=== PATIENT | male | born 1945 | race Caucasian/White ===

== ENCOUNTER 2022-09-28 13:26 | Inpatient (IN) | payer MEDICARE ==
[~2022-09-28] VITALS: Ht 177.8 cm; Wt 87.8 kg
[2022-09-28 13:35] VITALS: PULSE 125; RESP 27; O2SAT 95
[2022-09-28] MEDS ORDERED: HEPARIN SODIUM (PORCINE) 5000 UNITS/ML 1ML VIAL SC SCH (13:45)
[2022-09-28] MEDS ORDERED: SODIUM CHLORIDE 0.9% 2,250 ML IV ONE (13:45)
[2022-09-28] MEDS ORDERED: LACTATED RINGER'S 2,700 ML IV ONE (13:45)
[2022-09-28] MEDS ORDERED: VANCOMYCIN PER PHARMACY 1,000 MG IV SCH (13:45)
[2022-09-28] MEDS ORDERED: SODIUM CHLORIDE 0.9% 1,000 ML IV ONE (13:45)
[2022-09-28 14:58] LABS: Basophils # (auto) 0 10 ^3/uL (0-0.2); Basophils % (auto) 0.2 % (0.0-2.0); Eosinophils # (auto) 0 10 ^3/uL (0-0.8); Hemoglobin 7.9 g/dL (13.5-17.5); Lymphocytes # (auto) 0.8 10 ^3/uL (0.4-5.4); Neutrophils # (auto) 11.8 10 ^3/uL (1.6-8.6)
[2022-09-28 14:59] LABS: Hematocrit 26.7 % (41.0-53.0); Lymphocytes % (auto) 6.3 % (10.0-50.0); Mean Corpuscular Hemoglobin 16.8 pg (28.0-32.0); Mean Corpuscular Hgb Conc. 29.8 g/dL (32.0-36.0); Mean Corpuscular Volume 56.4 fL (80.0-100.0); Monocytes # (auto) 0.4 10 ^3/uL (0-1.3); Monocytes % (auto) 2.9 % (0.0-12.0); Neutrophils % (auto) 90.6 % (37.0-80.0); Red Blood Cells 4.73 10^6/uL (4.5-5.90); Red Cell Distribution Width 19.6 % (11.8-14.3)
[2022-09-28 15:13] LABS: Albumin 2.4 g/dL (3.4-5.0); Calcium 7.8 mg/dL (8.5-10.1); Potassium 3.2 mmol/L (3.5-5.1)
[2022-09-28 15:17] LABS: BUN/Creatinine Ratio 14.9 (10.0-20.0); Bilirubin, Total 0.4 mg/dL (0.2-1.0); Total Protein 6.5 g/dL (6.4-8.2)
[2022-09-28] MEDS ORDERED: SOD CHL 0.45% WITH 20MEQ KCL 1,000 ML IV ONE (15:30)
[2022-09-28] MEDS ORDERED: ACETAMINOPHEN 650 MG RECT SUPP PR ONE (15:30)
[2022-09-28] MEDS ORDERED: PIPERACILLIN-TAZO 4.5GM 100 ML IV ONE (15:30)
[2022-09-28 15:32] LABS: INR 1.16 (0.9-1.15); Partial Thromboplastin Time 29.4 SEC (24.5-34.5); Prothrombin Time 12.1 sec (9.3-11.8)
[2022-09-28] MEDS ORDERED: NOREPINEPHRINE 8 MG/250ML KIT 250 ML IV ONE (15:33)
[2022-09-28] MEDS: NOREPINEPHRINE 8 MG/250ML KIT 250 ML IV SCH (15:42)
[2022-09-28] MEDS ORDERED: LIDOCAINE 1% (LOCAL ANESTH.) PF 5ml SDV ID ONE (16:15)
[2022-09-28 16:30] LABS: Hypochromia Moderate; Platelet Estimate Adequate; Stomatocytes Few
[2022-09-28 16:31] LABS: Ovalocytes FEW; Target Cell FEW
[2022-09-28] MEDS ORDERED: VANCOMYCIN PER PHARMACY 0 MG IV SCH (16:45)
[2022-09-28] MEDS ORDERED: DOCUSATE SOD 100 MG CAP PO PRN (16:45)
[2022-09-28] MEDS ORDERED: DEXTROSE (50%) 50ML SYRG IV PRN (16:45)
[2022-09-28] MEDS ORDERED: VANCOMYCIN 1GM/250ML 250 ML IV ONE (17:00)
[2022-09-28] MEDS: SODIUM CHLORIDE 0.9% 1,000 ML IV SCH (17:22)
[2022-09-28 17:43] LABS: Urine Blood 1+ /uL (Negative); Urine Clarity CLOUDY (Clear); Urine Protein, UAD 2+ (Negative); Urine Specific Gravity 1.017 (1.001-1.035); Urine Urobilinogen Normal (Negative); Urine pH 7.5 (5.0-8.0)
[2022-09-28 17:53] LABS: Alcohol, Urine < 3.0 mg/dL (0-10); Amphetamine Screen, Urine NEGATIVE (NEGATIVE); Barbiturate Scree,Urine NEGATIVE (NEGATIVE); Benzodiazephine Screen, Urine NEGATIVE (NEGATIVE); Cannabinoid Screen, Urine NEGATIVE (NEGATIVE); Cocaine Screen, Urine NEGATIVE (NEGATIVE); Opiate Scree,Urine NEGATIVE (NEGATIVE); Phencyclidine Screen, Urine NEGATIVE (NEGATIVE); Urine Amorphous Crystal Moderate /hpf (None Seen); Urine Bacteria MANY /hpf (None Seen); Urine Hyaline Cast 1+ /lpf (0 - 2)
[2022-09-28 17:54] LABS: Urine Color YELLOW (Yellow)
[2022-09-28] MEDS ORDERED: PIPERACILLIN-TAZOB 3.375GM 100 ML IV SCH (18:00)
[2022-09-28] MEDS: ACCU-CHEK COMFORT CURVE STRIP VI SCH (18:01)
[2022-09-28] MEDS: POTASSIUM CHL 20MEQ/100ML 100 ML IV SCH ×2 (18:04→20:28)
[2022-09-28] MEDS: InsuLIN REG 1unit/0.01ml Soln (100units/ml) SC SCH (18:06)
[2022-09-28 18:54] LABS: Base Excess -4.9 mmol/L (-2.0-2.0)
[2022-09-28 19:02] LABS: COVID19 ANTIGEN SOFIA FIA NEGATIVE (NEGATIVE)
[2022-09-28 19:20] LABS: Blood Alcohol < 3.0 mg/dL (<10); Phosphorus 3.1 mg/dL (2.5-4.90)
[2022-09-28 19:30] VITALS: PULSE 83; RESP 22; O2SAT 95
[2022-09-28] MEDS: PIPERACILLIN-TAZOB 3.375GM 100 ML IV SCH (20:36)
[2022-09-28] MEDS ORDERED: PIPERACILLIN-TAZO 4.5GM 100 ML IV SCH (22:00)
[2022-09-28] MEDS: ENOXAPARIN SOD 80 MG/0.8ML SYRINGE SC SCH (22:24)
[2022-09-28] MEDS: SODIUM CHLOR 0.9% PF (SALINE LOCK) 10ML VIAL/SYR IV SCH (22:24)
[2022-09-28 23:05] LABS: Lactic Acid w/Reflex 2.6 mmol/L (0.4-2.0)
[2022-09-29] MEDS: ACCU-CHEK COMFORT CURVE STRIP VI SCH ×4 (00:09→18:18)
[2022-09-29] MEDS: InsuLIN REG 1unit/0.01ml Soln (100units/ml) SC SCH ×4 (00:16→18:00)
[2022-09-29] MEDS: SODIUM CHLORIDE 0.9% 1,000 ML IV SCH ×3 (00:35→17:54)
[2022-09-29] MEDS: PIPERACILLIN-TAZOB 3.375GM 100 ML IV SCH ×4 (03:22→20:18)
[2022-09-29 06:05] LABS: Basophils # (auto) 0 10 ^3/uL (0-0.2); Basophils % (auto) 0.2 % (0.0-2.0); Eosinophils # (auto) 0 10 ^3/uL (0-0.8); Hematocrit 24.5 % (41.0-53.0); Hemoglobin 7.1 g/dL (13.5-17.5); Mean Corpuscular Volume 58.2 fL (80.0-100.0); Red Blood Cells 4.21 10^6/uL (4.5-5.90)
[2022-09-29 06:08] LABS: Eosinophils % (auto) 0.1 % (0.0-7.0); Lymphocytes % (auto) 10.1 % (10.0-50.0); Mean Corpuscular Hemoglobin 16.9 pg (28.0-32.0); Mean Corpuscular Hgb Conc. 29.1 g/dL (32.0-36.0); Monocytes % (auto) 9.7 % (0.0-12.0); Neutrophils # (auto) 16.1 10 ^3/uL (1.6-8.6); Neutrophils % (auto) 79.9 % (37.0-80.0); White Blood Cell 20.1 10^3/uL (4.4-10.8)
[2022-09-29 06:14] LABS: Calcium 7.3 mg/dL (8.5-10.1); Potassium 3.3 mmol/L (3.5-5.1)
[2022-09-29 06:18] LABS: BUN/Creatinine Ratio 18.2 (10.0-20.0); Bilirubin, Total 0.4 mg/dL (0.2-1.0); Total Protein 6.1 g/dL (6.4-8.2)
[2022-09-29] MEDS: MAGNESIUM SULFATE 1GM/100ML 100 ML IV SCH ×2 (07:00→08:00)
[2022-09-29] MEDS: POTASSIUM CHL 20MEQ/100ML 100 ML IV SCH ×2 (07:00→10:01)
[2022-09-29 07:15] VITALS: PULSE 70; RESP 22; O2SAT 100
[2022-09-29 08:13] LABS: Cholesterol 73 mg/dL (< 200); HDL Cholesterol 25 mg/dL (40-59); LDL Cholesterol 32 mg/dL (< 100); Triglycerides 132 mg/dL (< 150)
[2022-09-29] MEDS ORDERED: ENOXAPARIN SOD 40 MG/0.4 ML SYRINGE SC SCH (10:00)
[2022-09-29] MEDS: SODIUM CHLOR 0.9% PF (SALINE LOCK) 10ML VIAL/SYR IV SCH ×2 (10:01→22:25)
[2022-09-29] MEDS: ENOXAPARIN SOD 80 MG/0.8ML SYRINGE SC SCH ×2 (10:03→22:19)
[2022-09-29] MEDS: VANCOMYCIN 1GM/250ML 250 ML IV SCH (11:28)
[2022-09-29 11:29] LABS: Hypochromia Moderate; Ovalocytes FEW; Platelet Estimate Adequate; Tear Drop Cells FEW
[2022-09-29] MEDS: ASPirin 81 mg TAB PO SCH (11:30)
[2022-09-29] MEDS ORDERED: MORPHINE SULFATE INJ 2 MG/ml SYRG IV ONE (12:00)
[2022-09-29] MEDS: NOREPINEPHRINE 8 MG/250ML KIT 250 ML IV SCH (15:43)
[2022-09-29] MEDS ORDERED: BACLOFEN 10 MG TAB PO SCH (15:50)
[2022-09-29] MEDS: BACLOFEN 10 MG TAB PO SCH ×2 (16:11→22:19)
[2022-09-29] MEDS: MORPHINE SULFATE INJ 2 MG/ml SYRG IV PRN ×2 (17:32→23:34)
[2022-09-29 19:35] VITALS: PULSE 80; RESP 10; O2SAT 100
[2022-09-29] MEDS: ATORVASTATIN 20 MG TAB PO SCH (22:19)
[2022-09-29] MEDS: ONDANSETRON HCL 4 MG/2 ML VIAL IV PRN (23:34)
[2022-09-30] VITALS (10 sets, daily range): BP systolic 98–156; BP diastolic 33–69; PULSE 68–84; RESP 11–18; TEMP 97.5–98.4; O2SAT 97–99
[2022-09-30] MEDS: VANCOMYCIN 1GM/250ML 250 ML IV SCH ×2 (01:24→19:33)
[2022-09-30] MEDS: ACCU-CHEK COMFORT CURVE STRIP VI SCH ×4 (01:35→18:09)
[2022-09-30] MEDS: InsuLIN REG 1unit/0.01ml Soln (100units/ml) SC SCH ×4 (01:35→18:00)
[2022-09-30] MEDS: SODIUM CHLORIDE 0.9% 1,000 ML IV SCH ×3 (02:22→23:00)
[2022-09-30] MEDS: PIPERACILLIN-TAZOB 3.375GM 100 ML IV SCH ×4 (02:26→20:50)
[2022-09-30] MEDS: BACLOFEN 10 MG TAB PO SCH ×4 (04:38→22:37)
[2022-09-30] MEDS: MORPHINE SULFATE INJ 2 MG/ml SYRG IV PRN ×3 (06:13→19:34)
[2022-09-30] MEDS: ONDANSETRON HCL 4 MG/2 ML VIAL IV PRN ×2 (06:13→19:33)
[2022-09-30 08:24] LABS: Basophils # (auto) 0 10 ^3/uL (0-0.2); Basophils % (auto) 0.3 % (0.0-2.0); Eosinophils # (auto) 0.1 10 ^3/uL (0-0.8); Lymphocytes # (auto) 1.3 10 ^3/uL (0.4-5.4); Mean Corpuscular Volume 59.6 fL (80.0-100.0); Monocytes # (auto) 1.1 10 ^3/uL (0-1.3); Neutrophils # (auto) 11.4 10 ^3/uL (1.6-8.6); Neutrophils % (auto) 81.5 % (37.0-80.0)
[2022-09-30 08:26] LABS: Eosinophils % (auto) 0.9 % (0.0-7.0); Hematocrit 24.5 % (41.0-53.0); Lymphocytes % (auto) 9.3 % (10.0-50.0); Mean Corpuscular Hgb Conc. 28.6 g/dL (32.0-36.0); Nucleated Red Blood Cells % 0.1 %
[2022-09-30 08:41] LABS: Albumin 1.9 g/dL (3.4-5.0); Calcium 6.9 mg/dL (8.5-10.1); Potassium 3.1 mmol/L (3.5-5.1)
[2022-09-30 08:44] LABS: BUN/Creatinine Ratio 13.9 (10.0-20.0); Bilirubin, Total 0.5 mg/dL (0.2-1.0); Total Protein 5.8 g/dL (6.4-8.2)
[2022-09-30 08:57] LABS: Red Cell Distribution Width 20.4 % (11.8-14.3)
[2022-09-30] MEDS: SODIUM CHLOR 0.9% PF (SALINE LOCK) 10ML VIAL/SYR IV SCH ×2 (10:07→22:38)
[2022-09-30] MEDS: ENOXAPARIN SOD 80 MG/0.8ML SYRINGE SC SCH ×2 (10:21→22:37)
[2022-09-30] MEDS: ASPirin 81 mg TAB PO SCH (10:21)
[2022-09-30 11:09] LABS: Platelet Estimate Adequate
[2022-09-30 11:10] LABS: Hypochromia Moderate
[2022-09-30 11:13] LABS: Sickle Cells FEW
[2022-09-30 11:21] LABS: Tear Drop Cells FEW
[2022-09-30] MEDS: NOREPINEPHRINE 8 MG/250ML KIT 250 ML IV SCH (16:00)
[2022-09-30] MEDS: ATORVASTATIN 20 MG TAB PO SCH (22:37)
[2022-10-01] VITALS (96 sets, daily range): BP systolic 61–170; BP diastolic 22–77; PULSE 58–100; RESP 9–27; TEMP 98.1–99.6; O2SAT 84–100
[2022-10-01] MEDS: PIPERACILLIN-TAZOB 3.375GM 100 ML IV SCH ×2 (02:17→10:34)
[2022-10-01] MEDS: SODIUM CHLORIDE 0.9% 1,000 ML IV SCH ×4 (02:57→23:52)
[2022-10-01] MEDS: BACLOFEN 10 MG TAB PO SCH ×4 (04:24→21:35)
[2022-10-01] MEDS: ACCU-CHEK COMFORT CURVE STRIP VI SCH ×2 (06:00)
[2022-10-01] MEDS: InsuLIN REG 1unit/0.01ml Soln (100units/ml) SC SCH ×2 (06:00)
[2022-10-01 07:49] LABS: Basophils # (auto) 0 10 ^3/uL (0-0.2); Basophils % (auto) 0.4 % (0.0-2.0); Eosinophils # (auto) 0.2 10 ^3/uL (0-0.8); Eosinophils % (auto) 1.7 % (0.0-7.0); Hematocrit 30.1 % (41.0-53.0); Hemoglobin 8.6 g/dL (13.5-17.5); Lymphocytes # (auto) 0.8 10 ^3/uL (0.4-5.4); Lymphocytes % (auto) 8.4 % (10.0-50.0); Mean Corpuscular Hemoglobin 18.7 pg (28.0-32.0); Mean Corpuscular Hgb Conc. 28.4 g/dL (32.0-36.0); Mean Corpuscular Volume 65.6 fL (80.0-100.0); Monocytes # (auto) 0.7 10 ^3/uL (0-1.3); Monocytes % (auto) 7.3 % (0.0-12.0); Neutrophils # (auto) 7.9 10 ^3/uL (1.6-8.6); Neutrophils % (auto) 82.2 % (37.0-80.0); Red Blood Cells 4.59 10^6/uL (4.5-5.90); White Blood Cell 9.6 10^3/uL (4.4-10.8)
[2022-10-01 09:44] LABS: Platelet Estimate Adequate
[2022-10-01 09:45] LABS: Hypochromia Moderate; Tear Drop Cells FEW
[2022-10-01 09:48] LABS: Ovalocytes FEW
[2022-10-01] MEDS: ASPirin 81 mg TAB PO SCH (10:36)
[2022-10-01] MEDS: SODIUM CHLOR 0.9% PF (SALINE LOCK) 10ML VIAL/SYR IV SCH ×2 (10:36→21:35)
[2022-10-01] MEDS: ENOXAPARIN SOD 80 MG/0.8ML SYRINGE SC SCH (10:37)
[2022-10-01] MEDS: MORPHINE SULFATE INJ 2 MG/ml SYRG IV PRN ×2 (10:59→17:41)
[2022-10-01] MEDS ORDERED: CLOP75TA70 PO (12:47)
[2022-10-01] MEDS ORDERED: LEVO100T8 PO (12:47)
[2022-10-01] MEDS ORDERED: HYDR25TA4 PO (12:47)
[2022-10-01] MEDS ORDERED: BACL10TA PO (12:47)
[2022-10-01] MEDS ORDERED: ATOR40TA52 PO (12:47)
[2022-10-01] MEDS: VANCOMYCIN 1GM/250ML 250 ML IV SCH (13:20)
[2022-10-01] MEDS: NOREPINEPHRINE 8 MG/250ML KIT 250 ML IV SCH ×2 (13:38→23:51)
[2022-10-01 13:41] LABS: Albumin 1.7 g/dL (3.4-5.0); Calcium 6.8 mg/dL (8.5-10.1)
[2022-10-01 13:46] LABS: BUN/Creatinine Ratio 8.4 (10.0-20.0); Bilirubin, Total 0.3 mg/dL (0.2-1.0); Total Protein 5.5 g/dL (6.4-8.2)
[2022-10-01 13:54] LABS: Potassium 2.9 mmol/L (3.5-5.1)
[2022-10-01] MEDS ORDERED: POTASSIUM CHL 20 Meq TABLET PO ONE ×2 (14:30→17:00)
[2022-10-01] MEDS: DAKINS QUARTER STR 0.125% (NaHypochlorite) 473 ML TOPICAL SOL TOP SCH (15:14)
[2022-10-01] MEDS: MAGNESIUM SULFATE 1GM/100ML 100 ML IV SCH ×2 (15:15→17:41)
[2022-10-01] MEDS: HYDROcodone-ACET 5/325MG TAB PO PRN ×2 (15:25→21:35)
[2022-10-01] MEDS: MEROPENEM 1GM IVPB 100 ML IV SCH ×2 (18:01→21:34)
[2022-10-01] MEDS: Ensure HIGH Protein Chocolate 8oz Bottle PO SCH (18:02)
[2022-10-01] MEDS: ATORVASTATIN 20 MG TAB PO SCH (21:34)
[2022-10-02] VITALS (100 sets, daily range): BP systolic 81–160; BP diastolic 30–85; PULSE 58–151; RESP 10–31; TEMP 98.1–98.9; O2SAT 87–100
[2022-10-02] MEDS: MORPHINE SULFATE INJ 2 MG/ml SYRG IV PRN (03:23)
[2022-10-02] MEDS: BACLOFEN 10 MG TAB PO SCH ×4 (03:31→21:39)
[2022-10-02 05:04] LABS: Basophils # (auto) 0.1 10 ^3/uL (0-0.2); Basophils % (auto) 0.4 % (0.0-2.0); Eosinophils # (auto) 0.1 10 ^3/uL (0-0.8); Eosinophils % (auto) 0.4 % (0.0-7.0); Hematocrit 26.8 % (41.0-53.0); Lymphocytes # (auto) 0.9 10 ^3/uL (0.4-5.4); Mean Corpuscular Hemoglobin 18.7 pg (28.0-32.0); Mean Corpuscular Hgb Conc. 29.9 g/dL (32.0-36.0); Mean Corpuscular Volume 62.6 fL (80.0-100.0); Monocytes # (auto) 1.4 10 ^3/uL (0-1.3); Monocytes % (auto) 11.2 % (0.0-12.0); Neutrophils # (auto) 10.1 10 ^3/uL (1.6-8.6); Nucleated Red Blood Cells % 0.4 %; Red Blood Cells 4.27 10^6/uL (4.5-5.90); White Blood Cell 12.5 10^3/uL (4.4-10.8)
[2022-10-02 05:07] LABS: RPR Non Reactive (Non Reactive)
[2022-10-02 05:08] LABS: Red Cell Distribution Width 24.3 % (11.8-14.3)
[2022-10-02 05:23] LABS: Calcium 7.5 mg/dL (8.5-10.1); Potassium 3.6 mmol/L (3.5-5.1)
[2022-10-02 05:30] LABS: Albumin 1.7 g/dL (3.4-5.0); BUN/Creatinine Ratio 7.6 (10.0-20.0)
[2022-10-02 05:34] LABS: Bilirubin, Total 0.3 mg/dL (0.2-1.0); Total Protein 5.7 g/dL (6.4-8.2)
[2022-10-02] MEDS: MEROPENEM 1GM IVPB 100 ML IV SCH ×3 (05:36→21:39)
[2022-10-02] MEDS: LEVOTHYROXINE SODIUM 100 MCG TAB PO SCH (06:30)
[2022-10-02] MEDS: VANCOMYCIN 1GM/250ML 250 ML IV SCH (06:30)
[2022-10-02] MEDS: ASPirin 81 mg TAB PO SCH (09:02)
[2022-10-02] MEDS: SODIUM CHLOR 0.9% PF (SALINE LOCK) 10ML VIAL/SYR IV SCH ×2 (09:02→21:40)
[2022-10-02] MEDS: ENOXAPARIN SOD 40 MG/0.4 ML SYRINGE SC SCH (09:02)
[2022-10-02] MEDS: Ensure HIGH Protein Chocolate 8oz Bottle PO SCH ×3 (09:03→18:54)
[2022-10-02 10:13] LABS: Hypochromia Moderate; Platelet Estimate Adequate
[2022-10-02 10:15] LABS: Target Cell FEW; Tear Drop Cells FEW
[2022-10-02] MEDS: NOREPINEPHRINE 8 MG/250ML KIT 250 ML IV SCH (11:06)
[2022-10-02] MEDS: HYDROcodone-ACET 5/325MG TAB PO PRN (12:23)
[2022-10-02] MEDS ORDERED: ALBUMIN 25% 50 ML IV ONE (12:45)
[2022-10-02] MEDS: DAKINS QUARTER STR 0.125% (NaHypochlorite) 473 ML TOPICAL SOL TOP SCH (13:44)
[2022-10-02] MEDS ORDERED: PHENYLEPHRINE IV 250 ML IV ONE (18:57)
[2022-10-02] MEDS ORDERED: POTASSIUM CHL 20 Meq TABLET PO ONE (19:00)
[2022-10-02] MEDS: PHENYLEPHRINE IV 250 ML IV SCH ×2 (19:00→21:47)
[2022-10-02] MEDS: VASOPRESSIN 20 UNITS in SODIUM CHL 0.9% 99 ML IV SCH (19:15)
[2022-10-02] MEDS ORDERED: DIGOXIN 0.25 MG TAB PO ONE (19:30)
[2022-10-02] MEDS: ALBUMIN 25% 100 ML IV SCH ×2 (20:05→21:06)
[2022-10-02] MEDS: ATORVASTATIN 20 MG TAB PO SCH (21:39)
[2022-10-03] VITALS (98 sets, daily range): BP systolic 82–174; BP diastolic 26–95; PULSE 59–155; RESP 11–22; TEMP 97.5–98.7; O2SAT 89–100
[2022-10-03] MEDS: VANCOMYCIN 1GM/250ML 250 ML IV SCH ×2 (00:48→18:23)
[2022-10-03] MEDS ORDERED: DIGOXIN 0.25 MG TAB PO ONE ×2 (01:30→07:30)
[2022-10-03] MEDS: PHENYLEPHRINE IV 250 ML IV SCH ×2 (01:47→06:53)
[2022-10-03] MEDS: BACLOFEN 10 MG TAB PO SCH ×4 (03:46→22:11)
[2022-10-03] MEDS: HYDROcodone-ACET 5/325MG TAB PO PRN (03:56)
[2022-10-03 05:10] LABS: Basophils # (auto) 0.1 10 ^3/uL (0-0.2); Eosinophils # (auto) 0.3 10 ^3/uL (0-0.8); White Blood Cell 13.5 10^3/uL (4.4-10.8)
[2022-10-03 05:19] LABS: Basophils % (auto) 1.1 % (0.0-2.0); Eosinophils % (auto) 2.1 % (0.0-7.0); Hematocrit 28.3 % (41.0-53.0); Hemoglobin 8.1 g/dL (13.5-17.5); Lymphocytes # (auto) 1.2 10 ^3/uL (0.4-5.4); Lymphocytes % (auto) 8.7 % (10.0-50.0); Mean Corpuscular Hemoglobin 18.2 pg (28.0-32.0); Mean Corpuscular Hgb Conc. 28.8 g/dL (32.0-36.0); Monocytes # (auto) 1.4 10 ^3/uL (0-1.3); Monocytes % (auto) 10.2 % (0.0-12.0); Neutrophils # (auto) 10.5 10 ^3/uL (1.6-8.6); Neutrophils % (auto) 77.9 % (37.0-80.0); Red Blood Cells 4.49 10^6/uL (4.5-5.90)
[2022-10-03 05:20] LABS: Red Cell Distribution Width 24.4 % (11.8-14.3)
[2022-10-03 05:31] LABS: Albumin 2.3 g/dL (3.4-5.0); Calcium 7.5 mg/dL (8.5-10.1); Potassium 4.3 mmol/L (3.5-5.1)
[2022-10-03 05:34] LABS: BUN/Creatinine Ratio 11.5 (10.0-20.0); Bilirubin, Total 0.3 mg/dL (0.2-1.0); Total Protein 5.6 g/dL (6.4-8.2)
[2022-10-03] MEDS: MEROPENEM 1GM IVPB 100 ML IV SCH ×3 (05:45→22:11)
[2022-10-03] MEDS: VASOPRESSIN 20 UNITS in SODIUM CHL 0.9% 99 ML IV SCH ×2 (06:22→17:29)
[2022-10-03] MEDS: LEVOTHYROXINE SODIUM 100 MCG TAB PO SCH (06:41)
[2022-10-03] MEDS: Ensure HIGH Protein Chocolate 8oz Bottle PO SCH ×3 (08:00→18:24)
[2022-10-03] MEDS ORDERED: MAGNESIUM SULFATE 1GM/100ML 100 ML IV ONE (09:00)
[2022-10-03] MEDS ORDERED: FUROSEMIDE 20 MG/2 ML VIAL IV ONE (09:00)
[2022-10-03] MEDS: ASPirin 81 mg TAB PO SCH (09:11)
[2022-10-03] MEDS: SODIUM CHLOR 0.9% PF (SALINE LOCK) 10ML VIAL/SYR IV SCH ×2 (09:11→22:10)
[2022-10-03] MEDS: ENOXAPARIN SOD 40 MG/0.4 ML SYRINGE SC SCH (09:12)
[2022-10-03] MEDS: DAKINS QUARTER STR 0.125% (NaHypochlorite) 473 ML TOPICAL SOL TOP SCH (10:54)
[2022-10-03] MEDS: PHENYLEPHRINE INJ 80 MG in SODIUM CHL 0.9% 242 ML IV SCH (10:54)
[2022-10-03 11:08] LABS: Anisocytosis Slight; Hypochromia Moderate; Ovalocytes FEW; Platelet Estimate Adequate; Target Cell FEW
[2022-10-03 11:09] LABS: Tear Drop Cells FEW
[2022-10-03] MEDS: MORPHINE SULFATE INJ 2 MG/ml SYRG IV PRN (15:39)
[2022-10-03] MEDS: ATORVASTATIN 20 MG TAB PO SCH (22:10)
[2022-10-04] VITALS (87 sets, daily range): BP systolic 87–146; BP diastolic 33–79; PULSE 72–155; RESP 13–25; TEMP 97.7–99; O2SAT 91–99
[2022-10-04] MEDS: MORPHINE SULFATE INJ 2 MG/ml SYRG IV PRN ×3 (00:23→14:16)
[2022-10-04 03:51] LABS: Basophils # (auto) 0 10 ^3/uL (0-0.2); Eosinophils # (auto) 0.4 10 ^3/uL (0-0.8); Lymphocytes # (auto) 1.2 10 ^3/uL (0.4-5.4)
[2022-10-04 03:54] LABS: Basophils % (auto) 0.2 % (0.0-2.0); Hematocrit 26.7 % (41.0-53.0); Lymphocytes % (auto) 8.1 % (10.0-50.0); Mean Corpuscular Hemoglobin 18.6 pg (28.0-32.0); Mean Corpuscular Hgb Conc. 30.1 g/dL (32.0-36.0); Mean Corpuscular Volume 61.9 fL (80.0-100.0); Monocytes # (auto) 0.9 10 ^3/uL (0-1.3); Monocytes % (auto) 6.4 % (0.0-12.0); Neutrophils # (auto) 12.1 10 ^3/uL (1.6-8.6); Neutrophils % (auto) 82.3 % (37.0-80.0); Red Blood Cells 4.32 10^6/uL (4.5-5.90); White Blood Cell 14.7 10^3/uL (4.4-10.8)
[2022-10-04 03:58] LABS: Red Cell Distribution Width 25.1 % (11.8-14.3)
[2022-10-04 04:05] LABS: Calcium 7.8 mg/dL (8.5-10.1); Potassium 3.9 mmol/L (3.5-5.1)
[2022-10-04 04:10] LABS: BUN/Creatinine Ratio 21.1 (10.0-20.0); Bilirubin, Total 0.4 mg/dL (0.2-1.0); Total Protein 5.6 g/dL (6.4-8.2)
[2022-10-04] MEDS: VASOPRESSIN 20 UNITS in SODIUM CHL 0.9% 99 ML IV SCH ×2 (04:29→15:43)
[2022-10-04] MEDS: BACLOFEN 10 MG TAB PO SCH ×4 (04:32→21:46)
[2022-10-04] MEDS: LEVOTHYROXINE SODIUM 100 MCG TAB PO SCH (06:34)
[2022-10-04] MEDS: MEROPENEM 1GM IVPB 100 ML IV SCH ×3 (06:35→21:47)
[2022-10-04 06:37] LABS: Anisocytosis Moderate; Platelet Estimate Adequate
[2022-10-04 06:41] LABS: Hypochromia Marked
[2022-10-04 06:42] LABS: Stomatocytes Few
[2022-10-04 06:43] LABS: Ovalocytes FEW
[2022-10-04] MEDS: ASPirin 81 mg TAB PO SCH (08:44)
[2022-10-04] MEDS: FUROSEMIDE 20 MG/2 ML VIAL IV SCH (08:44)
[2022-10-04] MEDS: ENOXAPARIN SOD 40 MG/0.4 ML SYRINGE SC SCH (08:44)
[2022-10-04] MEDS: SODIUM CHLOR 0.9% PF (SALINE LOCK) 10ML VIAL/SYR IV SCH ×2 (08:45→21:47)
[2022-10-04] MEDS: DAKINS QUARTER STR 0.125% (NaHypochlorite) 473 ML TOPICAL SOL TOP SCH (08:45)
[2022-10-04] MEDS: Ensure HIGH Protein Chocolate 8oz Bottle PO SCH ×3 (08:47→18:29)
[2022-10-04] MEDS: PHENYLEPHRINE INJ 80 MG in SODIUM CHL 0.9% 242 ML IV SCH (10:15)
[2022-10-04] MEDS: ATORVASTATIN 20 MG TAB PO SCH (21:46)
[2022-10-05] VITALS (72 sets, daily range): BP systolic 70–143; BP diastolic 29–90; PULSE 60–108; RESP 11–32; TEMP 97.8–98.9; O2SAT 91–100
[2022-10-05] MEDS: VASOPRESSIN 20 UNITS in SODIUM CHL 0.9% 99 ML IV SCH ×2 (02:32→13:57)
[2022-10-05] MEDS: MORPHINE SULFATE INJ 2 MG/ml SYRG IV PRN ×4 (03:04→23:59)
[2022-10-05 04:19] LABS: Basophils # (auto) 0 10 ^3/uL (0-0.2); Basophils % (auto) 0.2 % (0.0-2.0); Eosinophils # (auto) 0.3 10 ^3/uL (0-0.8); Lymphocytes # (auto) 1.3 10 ^3/uL (0.4-5.4); Mean Corpuscular Hgb Conc. 30.6 g/dL (32.0-36.0); Neutrophils # (auto) 8.3 10 ^3/uL (1.6-8.6); Neutrophils % (auto) 76.7 % (37.0-80.0)
[2022-10-05 04:23] LABS: Eosinophils % (auto) 2.3 % (0.0-7.0); Hematocrit 25.9 % (41.0-53.0); Hemoglobin 7.9 g/dL (13.5-17.5); Lymphocytes % (auto) 11.8 % (10.0-50.0); Mean Corpuscular Hemoglobin 18.6 pg (28.0-32.0); Mean Corpuscular Volume 60.6 fL (80.0-100.0); Nucleated Red Blood Cells % 0.2 %; Red Blood Cells 4.27 10^6/uL (4.5-5.90); White Blood Cell 10.8 10^3/uL (4.4-10.8)
[2022-10-05 04:25] LABS: Red Cell Distribution Width 25.5 % (11.8-14.3)
[2022-10-05] MEDS: BACLOFEN 10 MG TAB PO SCH ×4 (04:38→22:20)
[2022-10-05 04:46] LABS: Albumin 1.9 g/dL (3.4-5.0); Potassium 4.1 mmol/L (3.5-5.1)
[2022-10-05 04:50] LABS: Bilirubin, Total 0.3 mg/dL (0.2-1.0); Total Protein 5.7 g/dL (6.4-8.2)
[2022-10-05] MEDS: MEROPENEM 1GM IVPB 100 ML IV SCH ×3 (05:40→22:20)
[2022-10-05] MEDS: LEVOTHYROXINE SODIUM 100 MCG TAB PO SCH (06:22)
[2022-10-05 06:36] LABS: Platelet Estimate Adequate
[2022-10-05 06:37] LABS: Hypochromia Marked
[2022-10-05 06:38] LABS: Anisocytosis Moderate
[2022-10-05] MEDS ORDERED: VANCOMYCIN 1GM/250ML 250 ML IV ONE (09:00)
[2022-10-05] MEDS: Ensure HIGH Protein Chocolate 8oz Bottle PO SCH ×3 (09:26→18:25)
[2022-10-05] MEDS: FUROSEMIDE 20 MG/2 ML VIAL IV SCH (09:27)
[2022-10-05] MEDS: ENOXAPARIN SOD 40 MG/0.4 ML SYRINGE SC SCH (09:27)
[2022-10-05] MEDS: ASPirin 81 mg TAB PO SCH (09:27)
[2022-10-05] MEDS: SODIUM CHLOR 0.9% PF (SALINE LOCK) 10ML VIAL/SYR IV SCH ×2 (09:28→22:20)
[2022-10-05] MEDS: DAKINS QUARTER STR 0.125% (NaHypochlorite) 473 ML TOPICAL SOL TOP SCH (09:29)
[2022-10-05] MEDS: PHENYLEPHRINE INJ 80 MG in SODIUM CHL 0.9% 242 ML IV SCH (10:15)
[2022-10-05] MEDS: HYDROcodone-ACET 5/325MG TAB PO PRN (18:25)
[2022-10-05] MEDS: ATORVASTATIN 20 MG TAB PO SCH (22:20)
[2022-10-06] VITALS (93 sets, daily range): BP systolic 88–139; BP diastolic 33–59; PULSE 70–99; RESP 12–28; TEMP 98–98.6; O2SAT 95–100
[2022-10-06] MEDS: VASOPRESSIN 20 UNITS in SODIUM CHL 0.9% 99 ML IV SCH ×3 (01:04→23:18)
[2022-10-06 04:44] LABS: Eosinophils # (auto) 0.5 10 ^3/uL (0-0.8); Monocytes # (auto) 1.7 10 ^3/uL (0-1.3); Neutrophils # (auto) 8.3 10 ^3/uL (1.6-8.6); Neutrophils % (auto) 65.8 % (37.0-80.0)
[2022-10-06 04:45] LABS: Basophils # (auto) 0 10 ^3/uL (0-0.2); Basophils % (auto) 0.3 % (0.0-2.0); Hematocrit 29.3 % (41.0-53.0); Hemoglobin 8.7 g/dL (13.5-17.5); Lymphocytes % (auto) 16.1 % (10.0-50.0); Mean Corpuscular Hemoglobin 18.3 pg (28.0-32.0); Mean Corpuscular Hgb Conc. 29.6 g/dL (32.0-36.0); Mean Corpuscular Volume 61.9 fL (80.0-100.0); Monocytes % (auto) 13.8 % (0.0-12.0); Red Blood Cells 4.73 10^6/uL (4.5-5.90); White Blood Cell 12.6 10^3/uL (4.4-10.8)
[2022-10-06 04:49] LABS: Red Cell Distribution Width 25.1 % (11.8-14.3)
[2022-10-06 05:03] LABS: Platelet Estimate Adequate
[2022-10-06 05:04] LABS: Anisocytosis Moderate; Hypochromia Marked
[2022-10-06] MEDS: BACLOFEN 10 MG TAB PO SCH ×4 (05:04→22:30)
[2022-10-06 05:43] LABS: BUN/Creatinine Ratio 26.6 (10.0-20.0); Calcium 8.2 mg/dL (8.5-10.1); Potassium 3.8 mmol/L (3.5-5.1)
[2022-10-06] MEDS: MORPHINE SULFATE INJ 2 MG/ml SYRG IV PRN ×3 (06:16→19:57)
[2022-10-06] MEDS: MEROPENEM 1GM IVPB 100 ML IV SCH ×3 (06:16→22:30)
[2022-10-06] MEDS: LEVOTHYROXINE SODIUM 100 MCG TAB PO SCH (06:48)
[2022-10-06] MEDS: ENOXAPARIN SOD 40 MG/0.4 ML SYRINGE SC SCH (09:53)
[2022-10-06] MEDS: FUROSEMIDE 20 MG/2 ML VIAL IV SCH (09:53)
[2022-10-06] MEDS: SODIUM CHLOR 0.9% PF (SALINE LOCK) 10ML VIAL/SYR IV SCH ×2 (09:53→22:31)
[2022-10-06] MEDS: ASPirin 81 mg TAB PO SCH (09:53)
[2022-10-06] MEDS: DAKINS QUARTER STR 0.125% (NaHypochlorite) 473 ML TOPICAL SOL TOP SCH (09:55)
[2022-10-06] MEDS: Ensure HIGH Protein Chocolate 8oz Bottle PO SCH ×3 (09:55→17:28)
[2022-10-06] MEDS: PHENYLEPHRINE INJ 80 MG in SODIUM CHL 0.9% 242 ML IV SCH (10:15)
[2022-10-06] MEDS: MIDODRINE HCL 10 MG TAB PO SCH ×2 (12:00→17:27)
[2022-10-06] MEDS: ATORVASTATIN 20 MG TAB PO SCH (22:30)
[2022-10-07] VITALS (94 sets, daily range): BP systolic 73–159; BP diastolic 27–63; PULSE 62–96; RESP 12–27; TEMP 97.8–98.2; O2SAT 77–100
[2022-10-07] MEDS: BACLOFEN 10 MG TAB PO SCH ×4 (04:16→22:31)
[2022-10-07] MEDS: MORPHINE SULFATE INJ 2 MG/ml SYRG IV PRN ×2 (04:16→09:29)
[2022-10-07] MEDS: PHENYLEPHRINE INJ 80 MG in SODIUM CHL 0.9% 242 ML IV SCH (05:49)
[2022-10-07] MEDS: LEVOTHYROXINE SODIUM 100 MCG TAB PO SCH (06:34)
[2022-10-07] MEDS: MEROPENEM 1GM IVPB 100 ML IV SCH ×3 (06:34→22:31)
[2022-10-07] MEDS: MIDODRINE HCL 10 MG TAB PO SCH ×3 (06:35→18:06)
[2022-10-07] MEDS: Ensure HIGH Protein Chocolate 8oz Bottle PO SCH ×3 (08:00→18:00)
[2022-10-07] MEDS: ASPirin 81 mg TAB PO SCH (10:00)
[2022-10-07] MEDS: DAKINS QUARTER STR 0.125% (NaHypochlorite) 473 ML TOPICAL SOL TOP SCH (10:00)
[2022-10-07] MEDS: FUROSEMIDE 20 MG/2 ML VIAL IV SCH (10:00)
[2022-10-07] MEDS: SODIUM CHLOR 0.9% PF (SALINE LOCK) 10ML VIAL/SYR IV SCH ×2 (10:00→22:32)
[2022-10-07 10:51] LABS: Basophils # (auto) 0.1 10 ^3/uL (0-0.2); Eosinophils # (auto) 0.3 10 ^3/uL (0-0.8); Eosinophils % (auto) 2.9 % (0.0-7.0); Hematocrit 28.3 % (41.0-53.0); Hemoglobin 8.5 g/dL (13.5-17.5); Lymphocytes # (auto) 1.7 10 ^3/uL (0.4-5.4); Lymphocytes % (auto) 15.7 % (10.0-50.0); Mean Corpuscular Hemoglobin 18.5 pg (28.0-32.0); Mean Corpuscular Volume 61.7 fL (80.0-100.0); Monocytes # (auto) 1.3 10 ^3/uL (0-1.3); Monocytes % (auto) 11.7 % (0.0-12.0); Neutrophils # (auto) 7.4 10 ^3/uL (1.6-8.6); Neutrophils % (auto) 68.7 % (37.0-80.0); Nucleated Red Blood Cells % 0.1 %; Red Blood Cells 4.59 10^6/uL (4.5-5.90); Red Cell Distribution Width 24.6 % (11.8-14.3)
[2022-10-07 10:52] LABS: White Blood Cell 10.7 10^3/uL (4.4-10.8)
[2022-10-07] MEDS ORDERED: VANCOMYCIN 500 MG in D5W 5% 100 ML IV ONE (11:00)
[2022-10-07] MEDS: VASOPRESSIN 20 UNITS in SODIUM CHL 0.9% 99 ML IV SCH ×2 (13:52→21:32)
[2022-10-07] MEDS: ENOXAPARIN SOD 40 MG/0.4 ML SYRINGE SC SCH (13:57)
[2022-10-07] MEDS: HYDROcodone-ACET 5/325MG TAB PO PRN (18:34)
[2022-10-07] MEDS: ATORVASTATIN 20 MG TAB PO SCH (22:31)
[2022-10-08] VITALS (96 sets, daily range): BP systolic 87–165; BP diastolic 29–76; PULSE 66–103; RESP 13–35; TEMP 98–98.2; O2SAT 89–100
[2022-10-08] MEDS: MORPHINE SULFATE INJ 2 MG/ml SYRG IV PRN ×4 (01:11→23:47)
[2022-10-08] MEDS: BACLOFEN 10 MG TAB PO SCH ×4 (04:30→21:31)
[2022-10-08] MEDS: MIDODRINE HCL 10 MG TAB PO SCH ×3 (06:31→18:08)
[2022-10-08] MEDS: LEVOTHYROXINE SODIUM 100 MCG TAB PO SCH (06:31)
[2022-10-08] MEDS: MEROPENEM 1GM IVPB 100 ML IV SCH ×3 (06:31→21:31)
[2022-10-08] MEDS: Ensure HIGH Protein Chocolate 8oz Bottle PO SCH ×3 (08:00→18:22)
[2022-10-08] MEDS: VASOPRESSIN 20 UNITS in SODIUM CHL 0.9% 99 ML IV SCH ×2 (08:39→19:46)
[2022-10-08] MEDS: FUROSEMIDE 20 MG/2 ML VIAL IV SCH (10:26)
[2022-10-08] MEDS: ENOXAPARIN SOD 40 MG/0.4 ML SYRINGE SC SCH (10:26)
[2022-10-08] MEDS: ASPirin 81 mg TAB PO SCH (10:26)
[2022-10-08] MEDS: SODIUM CHLOR 0.9% PF (SALINE LOCK) 10ML VIAL/SYR IV SCH ×2 (10:27→21:31)
[2022-10-08] MEDS: DAKINS QUARTER STR 0.125% (NaHypochlorite) 473 ML TOPICAL SOL TOP SCH (10:34)
[2022-10-08] MEDS: PHENYLEPHRINE INJ 80 MG in SODIUM CHL 0.9% 242 ML IV SCH (14:10)
[2022-10-08] MEDS ORDERED: VANCOMYCIN 1GM/250ML 250 ML IV ONE (18:00)
[2022-10-08] MEDS: HYDROcodone-ACET 5/325MG TAB PO PRN (21:09)
[2022-10-08] MEDS: ATORVASTATIN 20 MG TAB PO SCH (21:31)
[2022-10-09] VITALS (96 sets, daily range): BP systolic 81–164; BP diastolic 26–74; PULSE 55–97; RESP 12–32; TEMP 97.7–98.3; O2SAT 92–100
[2022-10-09] MEDS: BACLOFEN 10 MG TAB PO SCH ×3 (03:45→19:21)
[2022-10-09 04:20] LABS: Basophils # (auto) 0.1 10 ^3/uL (0-0.2); Basophils % (auto) 0.7 % (0.0-2.0)
[2022-10-09 04:23] LABS: Eosinophils # (auto) 0.6 10 ^3/uL (0-0.8); Eosinophils % (auto) 4.8 % (0.0-7.0); Hematocrit 29.2 % (41.0-53.0); Hemoglobin 8.7 g/dL (13.5-17.5); Lymphocytes # (auto) 2.8 10 ^3/uL (0.4-5.4); Mean Corpuscular Hemoglobin 18.1 pg (28.0-32.0); Mean Corpuscular Hgb Conc. 29.8 g/dL (32.0-36.0); Mean Corpuscular Volume 60.8 fL (80.0-100.0); Monocytes # (auto) 1.8 10 ^3/uL (0-1.3); Monocytes % (auto) 13.7 % (0.0-12.0); Neutrophils % (auto) 59.8 % (37.0-80.0); Red Blood Cells 4.81 10^6/uL (4.5-5.90); White Blood Cell 13.4 10^3/uL (4.4-10.8)
[2022-10-09 04:30] LABS: Red Cell Distribution Width 25.2 % (11.8-14.3)
[2022-10-09 04:51] LABS: BUN/Creatinine Ratio 37.1 (10.0-20.0); Calcium 8.6 mg/dL (8.5-10.1); Potassium 3.9 mmol/L (3.5-5.1)
[2022-10-09] MEDS: MEROPENEM 1GM IVPB 100 ML IV SCH (06:00)
[2022-10-09] MEDS: MIDODRINE HCL 10 MG TAB PO SCH ×3 (06:00→19:21)
[2022-10-09] MEDS: PHENYLEPHRINE INJ 80 MG in SODIUM CHL 0.9% 242 ML IV SCH ×2 (06:20→17:22)
[2022-10-09] MEDS: LEVOTHYROXINE SODIUM 100 MCG TAB PO SCH (06:50)
[2022-10-09] MEDS: VASOPRESSIN 20 UNITS in SODIUM CHL 0.9% 99 ML IV SCH ×2 (06:53→18:00)
[2022-10-09] MEDS: ASPirin 81 mg TAB PO SCH (10:26)
[2022-10-09] MEDS: ENOXAPARIN SOD 40 MG/0.4 ML SYRINGE SC SCH (10:26)
[2022-10-09] MEDS: SODIUM CHLOR 0.9% PF (SALINE LOCK) 10ML VIAL/SYR IV SCH ×2 (10:37→22:22)
[2022-10-09] MEDS: Ensure HIGH Protein Chocolate 8oz Bottle PO SCH ×3 (10:37→18:00)
[2022-10-09] MEDS: DAKINS QUARTER STR 0.125% (NaHypochlorite) 473 ML TOPICAL SOL TOP SCH (10:39)
[2022-10-09] MEDS: MORPHINE SULFATE INJ 2 MG/ml SYRG IV PRN ×2 (11:28→21:42)
[2022-10-09] MEDS: ALBUMIN 25% 50 ML IV SCH ×2 (11:49→20:48)
[2022-10-09 12:15] LABS: Anisocytosis Moderate; Hypochromia Marked; Platelet Estimate Increased
[2022-10-09] MEDS: VANCOMYCIN 500 MG in D5W 5% 100 ML IV SCH (14:52)
[2022-10-09] MEDS: ATORVASTATIN 20 MG TAB PO SCH (22:00)
[2022-10-09] MEDS: CIPROFLOXACIN 400MG/200ML 200 ML IV SCH (22:22)
[2022-10-10] VITALS (95 sets, daily range): BP systolic 73–165; BP diastolic 34–68; PULSE 55–94; RESP 13–30; TEMP 97.8–99.5; O2SAT 92–100
[2022-10-10] MEDS: BACLOFEN 10 MG TAB PO SCH ×5 (00:20→23:34)
[2022-10-10] MEDS: PHENYLEPHRINE INJ 80 MG in SODIUM CHL 0.9% 242 ML IV SCH ×2 (02:30→15:08)
[2022-10-10] MEDS: ALBUMIN 25% 50 ML IV SCH (02:33)
[2022-10-10 04:17] LABS: Basophils # (auto) 0.1 10 ^3/uL (0-0.2); Eosinophils # (auto) 0.6 10 ^3/uL (0-0.8); Eosinophils % (auto) 5.2 % (0.0-7.0); Nucleated Red Blood Cells % 0.1 %
[2022-10-10 04:20] LABS: Basophils % (auto) 0.7 % (0.0-2.0); Hematocrit 26.2 % (41.0-53.0); Hemoglobin 7.7 g/dL (13.5-17.5); Lymphocytes # (auto) 2.3 10 ^3/uL (0.4-5.4); Mean Corpuscular Hemoglobin 17.9 pg (28.0-32.0); Mean Corpuscular Hgb Conc. 29.3 g/dL (32.0-36.0); Monocytes # (auto) 1.2 10 ^3/uL (0-1.3); Monocytes % (auto) 10.5 % (0.0-12.0); Neutrophils # (auto) 7.4 10 ^3/uL (1.6-8.6); Neutrophils % (auto) 63.6 % (37.0-80.0); Red Blood Cells 4.29 10^6/uL (4.5-5.90); White Blood Cell 11.7 10^3/uL (4.4-10.8)
[2022-10-10 04:39] LABS: Red Cell Distribution Width 24.6 % (11.8-14.3)
[2022-10-10] MEDS: VASOPRESSIN 20 UNITS in SODIUM CHL 0.9% 99 ML IV SCH ×2 (05:07→16:14)
[2022-10-10] MEDS: MORPHINE SULFATE INJ 2 MG/ml SYRG IV PRN ×3 (05:58→19:21)
[2022-10-10] MEDS: MIDODRINE HCL 10 MG TAB PO SCH ×3 (05:59→19:14)
[2022-10-10] MEDS: LEVOTHYROXINE SODIUM 100 MCG TAB PO SCH (06:35)
[2022-10-10 06:36] LABS: Anisocytosis Moderate; Hypochromia Marked; Platelet Estimate Adequate
[2022-10-10 06:37] LABS: Ovalocytes FEW; Stomatocytes Moderate
[2022-10-10] MEDS: Ensure HIGH Protein Chocolate 8oz Bottle PO SCH ×3 (08:00→19:14)
[2022-10-10] MEDS: ASPirin 81 mg TAB PO SCH (10:28)
[2022-10-10] MEDS: CIPROFLOXACIN 400MG/200ML 200 ML IV SCH ×2 (10:28→22:02)
[2022-10-10] MEDS: ENOXAPARIN SOD 40 MG/0.4 ML SYRINGE SC SCH (10:28)
[2022-10-10] MEDS: DAKINS QUARTER STR 0.125% (NaHypochlorite) 473 ML TOPICAL SOL TOP SCH (10:29)
[2022-10-10] MEDS: SODIUM CHLOR 0.9% PF (SALINE LOCK) 10ML VIAL/SYR IV SCH ×2 (10:30→22:02)
[2022-10-10] MEDS: VANCOMYCIN 500 MG in D5W 5% 100 ML IV SCH (15:13)
[2022-10-10] MEDS ORDERED: metroNIDAZOLE 500MG/100ML 100 ML IV ONE (15:30)
[2022-10-10 16:31] LABS: Urine Amorphous Crystal FEW /hpf (None Seen); Urine Bacteria FEW /hpf (None Seen); Urine Blood Negative /uL (Negative); Urine Budding Yeast MODERATE /hpf (None Seen); Urine Clarity Clear (Clear); Urine Color Colorless (Yellow); Urine Protein, UAD Negative (Negative); Urine Specific Gravity 1.007 (1.001-1.035); Urine Urobilinogen Normal (Negative); Urine WBC 3 /hpf (0 - 3); Urine pH 7.5 (5.0-8.0)
[2022-10-10] MEDS: metroNIDAZOLE 500MG/100ML 100 ML IV SCH (22:02)
[2022-10-10] MEDS: ATORVASTATIN 20 MG TAB PO SCH (22:02)
[2022-10-11] VITALS (96 sets, daily range): BP systolic 69–140; BP diastolic 30–67; PULSE 62–92; RESP 11–26; TEMP 97.8–98.5; O2SAT 94–100
[2022-10-11] MEDS: MORPHINE SULFATE INJ 2 MG/ml SYRG IV PRN ×2 (01:14→13:33)
[2022-10-11] MEDS: VASOPRESSIN 20 UNITS in SODIUM CHL 0.9% 99 ML IV SCH ×2 (03:21→09:49)
[2022-10-11 04:21] LABS: Basophils # (auto) 0.1 10 ^3/uL (0-0.2); Basophils % (auto) 0.9 % (0.0-2.0)
[2022-10-11 04:25] LABS: Eosinophils # (auto) 0.6 10 ^3/uL (0-0.8); Eosinophils % (auto) 5.7 % (0.0-7.0); Hematocrit 27.2 % (41.0-53.0); Lymphocytes % (auto) 17.6 % (10.0-50.0); Mean Corpuscular Hemoglobin 18.2 pg (28.0-32.0); Mean Corpuscular Hgb Conc. 29.5 g/dL (32.0-36.0); Mean Corpuscular Volume 61.5 fL (80.0-100.0); Monocytes # (auto) 1.1 10 ^3/uL (0-1.3); Monocytes % (auto) 10.1 % (0.0-12.0); Neutrophils # (auto) 7.4 10 ^3/uL (1.6-8.6); Neutrophils % (auto) 65.7 % (37.0-80.0); Red Blood Cells 4.43 10^6/uL (4.5-5.90); Red Cell Distribution Width 24.6 % (11.8-14.3); White Blood Cell 11.2 10^3/uL (4.4-10.8)
[2022-10-11 04:38] LABS: Calcium 8.6 mg/dL (8.5-10.1); Potassium 4.2 mmol/L (3.5-5.1)
[2022-10-11 05:21] LABS: Anisocytosis Moderate; Hypochromia Moderate; Platelet Estimate Adequate
[2022-10-11 05:22] LABS: Ovalocytes FEW; Stomatocytes Few
[2022-10-11] MEDS: metroNIDAZOLE 500MG/100ML 100 ML IV SCH ×3 (05:36→21:40)
[2022-10-11] MEDS: BACLOFEN 10 MG TAB PO SCH ×4 (06:13→23:11)
[2022-10-11] MEDS: MIDODRINE HCL 10 MG TAB PO SCH ×3 (06:13→17:38)
[2022-10-11] MEDS: LEVOTHYROXINE SODIUM 100 MCG TAB PO SCH (06:14)
[2022-10-11] MEDS: PHENYLEPHRINE INJ 80 MG in SODIUM CHL 0.9% 242 ML IV SCH (06:23)
[2022-10-11] MEDS: Ensure HIGH Protein Chocolate 8oz Bottle PO SCH ×3 (08:00→17:38)
[2022-10-11] MEDS: ASPirin 81 mg TAB PO SCH (09:48)
[2022-10-11] MEDS: DAKINS QUARTER STR 0.125% (NaHypochlorite) 473 ML TOPICAL SOL TOP SCH (09:48)
[2022-10-11] MEDS: ENOXAPARIN SOD 40 MG/0.4 ML SYRINGE SC SCH (09:48)
[2022-10-11] MEDS: CIPROFLOXACIN 400MG/200ML 200 ML IV SCH ×2 (09:48→23:11)
[2022-10-11] MEDS: SODIUM CHLOR 0.9% PF (SALINE LOCK) 10ML VIAL/SYR IV SCH ×2 (09:48→21:40)
[2022-10-11] MEDS: VANCOMYCIN 500 MG in D5W 5% 100 ML IV SCH (13:59)
[2022-10-11] MEDS ORDERED: SODIUM CHLORIDE 0.9% 250 ML IV ONE ×2 (14:45→16:45)
[2022-10-11] MEDS: ATORVASTATIN 20 MG TAB PO SCH (23:11)
[2022-10-12] VITALS (50 sets, daily range): BP systolic 82–127; BP diastolic 36–64; PULSE 63–101; RESP 13–32; TEMP 98–98.8; O2SAT 86–99
[2022-10-12] MEDS: VASOPRESSIN 20 UNITS in SODIUM CHL 0.9% 99 ML IV SCH ×3 (01:35→23:49)
[2022-10-12] MEDS: MORPHINE SULFATE INJ 2 MG/ml SYRG IV PRN ×3 (03:58→22:05)
[2022-10-12 04:14] LABS: Basophils # (auto) 0.1 10 ^3/uL (0-0.2); Hematocrit 24.1 % (41.0-53.0); Hemoglobin 7.4 g/dL (13.5-17.5); Lymphocytes # (auto) 1.4 10 ^3/uL (0.4-5.4)
[2022-10-12 04:17] LABS: Basophils % (auto) 0.8 % (0.0-2.0); Eosinophils # (auto) 0.4 10 ^3/uL (0-0.8); Eosinophils % (auto) 4.2 % (0.0-7.0); Lymphocytes % (auto) 15.7 % (10.0-50.0); Mean Corpuscular Hemoglobin 18.7 pg (28.0-32.0); Mean Corpuscular Hgb Conc. 30.8 g/dL (32.0-36.0); Mean Corpuscular Volume 60.6 fL (80.0-100.0); Monocytes # (auto) 0.9 10 ^3/uL (0-1.3); Neutrophils # (auto) 6.1 10 ^3/uL (1.6-8.6); Neutrophils % (auto) 69.3 % (37.0-80.0); Red Blood Cells 3.98 10^6/uL (4.5-5.90); Red Cell Distribution Width 24.5 % (11.8-14.3); White Blood Cell 8.7 10^3/uL (4.4-10.8)
[2022-10-12 04:30] LABS: Potassium 3.9 mmol/L (3.5-5.1)
[2022-10-12 04:34] LABS: BUN/Creatinine Ratio 32.4 (10.0-20.0); Calcium 8.4 mg/dL (8.5-10.1)
[2022-10-12] MEDS: LEVOTHYROXINE SODIUM 100 MCG TAB PO SCH (06:27)
[2022-10-12] MEDS: MIDODRINE HCL 10 MG TAB PO SCH ×3 (06:27→17:39)
[2022-10-12] MEDS: metroNIDAZOLE 500MG/100ML 100 ML IV SCH ×3 (06:27→22:12)
[2022-10-12] MEDS: ASPirin 81 mg TAB PO SCH (09:42)
[2022-10-12] MEDS: CIPROFLOXACIN 400MG/200ML 200 ML IV SCH ×2 (09:42→22:12)
[2022-10-12] MEDS: ENOXAPARIN SOD 40 MG/0.4 ML SYRINGE SC SCH (09:42)
[2022-10-12] MEDS: BACLOFEN 10 MG TAB PO SCH ×4 (09:42→23:48)
[2022-10-12] MEDS: SODIUM CHLOR 0.9% PF (SALINE LOCK) 10ML VIAL/SYR IV SCH ×2 (09:43→22:13)
[2022-10-12] MEDS: DAKINS QUARTER STR 0.125% (NaHypochlorite) 473 ML TOPICAL SOL TOP SCH (09:43)
[2022-10-12] MEDS: Ensure HIGH Protein Chocolate 8oz Bottle PO SCH ×3 (09:44→17:39)
[2022-10-12] MEDS: VANCOMYCIN 500 MG in D5W 5% 100 ML IV SCH (14:20)
[2022-10-12] MEDS: PHENYLEPHRINE INJ 80 MG in SODIUM CHL 0.9% 242 ML IV SCH (16:56)
[2022-10-12] MEDS: ATORVASTATIN 20 MG TAB PO SCH (22:12)
[2022-10-13] VITALS (11 sets, daily range): BP systolic 101–142; BP diastolic 32–59; PULSE 73–106; RESP 16–20; TEMP 98.1–99; O2SAT 92–97
[2022-10-13] MEDS: MIDODRINE HCL 10 MG TAB PO SCH ×3 (05:22→18:00)
[2022-10-13] MEDS: metroNIDAZOLE 500MG/100ML 100 ML IV SCH ×3 (05:22→21:30)
[2022-10-13] MEDS: BACLOFEN 10 MG TAB PO SCH ×4 (05:23→23:27)
[2022-10-13] MEDS: LEVOTHYROXINE SODIUM 100 MCG TAB PO SCH (06:23)
[2022-10-13 06:44] LABS: Basophils # (auto) 0.1 10 ^3/uL (0-0.2); Eosinophils # (auto) 0.3 10 ^3/uL (0-0.8); Hematocrit 25.8 % (41.0-53.0)
[2022-10-13 06:47] LABS: Basophils % (auto) 0.7 % (0.0-2.0); Hemoglobin 7.8 g/dL (13.5-17.5); Lymphocytes # (auto) 1.9 10 ^3/uL (0.4-5.4); Lymphocytes % (auto) 18.5 % (10.0-50.0); Mean Corpuscular Hemoglobin 18.3 pg (28.0-32.0); Mean Corpuscular Hgb Conc. 30.1 g/dL (32.0-36.0); Mean Corpuscular Volume 60.8 fL (80.0-100.0); Monocytes % (auto) 9.9 % (0.0-12.0); Neutrophils # (auto) 6.8 10 ^3/uL (1.6-8.6); Neutrophils % (auto) 67.9 % (37.0-80.0); Nucleated Red Blood Cells % 0.1 %; Red Blood Cells 4.24 10^6/uL (4.5-5.90)
[2022-10-13 06:51] LABS: Red Cell Distribution Width 24.9 % (11.8-14.3)
[2022-10-13 07:55] LABS: Platelet Estimate Adequate
[2022-10-13 07:57] LABS: Ovalocytes FEW; Stomatocytes Few
[2022-10-13] MEDS: ASPirin 81 mg TAB PO SCH (09:44)
[2022-10-13] MEDS: CIPROFLOXACIN 400MG/200ML 200 ML IV SCH ×2 (09:44→22:46)
[2022-10-13] MEDS: ENOXAPARIN SOD 40 MG/0.4 ML SYRINGE SC SCH (09:44)
[2022-10-13] MEDS: SODIUM CHLOR 0.9% PF (SALINE LOCK) 10ML VIAL/SYR IV SCH ×2 (09:44→21:38)
[2022-10-13] MEDS: MORPHINE SULFATE INJ 2 MG/ml SYRG IV PRN ×2 (10:00→16:42)
[2022-10-13] MEDS: DAKINS QUARTER STR 0.125% (NaHypochlorite) 473 ML TOPICAL SOL TOP SCH (10:00)
[2022-10-13] MEDS: Ensure HIGH Protein Chocolate 8oz Bottle PO SCH ×3 (10:00→18:26)
[2022-10-13] MEDS: VASOPRESSIN 20 UNITS in SODIUM CHL 0.9% 99 ML IV SCH (10:56)
[2022-10-13] MEDS: VANCOMYCIN 500 MG in D5W 5% 100 ML IV SCH (15:31)
[2022-10-13] MEDS: PHENYLEPHRINE INJ 80 MG in SODIUM CHL 0.9% 242 ML IV SCH (15:45)
[2022-10-13] MEDS: ACETAMINOPHEN 500 MG TAB PO PRN (18:25)
[2022-10-13] MEDS ORDERED: FLUCONAZOLE 200MG/100ML 100 ML IV ONE (18:45)
[2022-10-13] MEDS: ATORVASTATIN 20 MG TAB PO SCH (21:37)
[2022-10-14] VITALS (7 sets, daily range): BP systolic 105–157; BP diastolic 43–79; PULSE 73–108; RESP 18–22; TEMP 97.9–99; O2SAT 90–96
[2022-10-14 00:48] LABS: Urine Bacteria NONE SEEN /hpf (None Seen); Urine Blood Negative /uL (Negative); Urine Budding Yeast LOADED /hpf (None Seen); Urine Clarity HAZY (Clear); Urine Color Yellow (Yellow); Urine Mucus FEW (None Seen); Urine Protein, UAD 3+ (Negative); Urine Specific Gravity 1.013 (1.001-1.035); Urine Urobilinogen Normal (Negative); Urine WBC <1 /hpf (0 - 3)
[2022-10-14] MEDS: MORPHINE SULFATE INJ 2 MG/ml SYRG IV PRN ×2 (00:54→07:12)
[2022-10-14] MEDS: metroNIDAZOLE 500MG/100ML 100 ML IV SCH ×3 (05:26→21:56)
[2022-10-14] MEDS: BACLOFEN 10 MG TAB PO SCH ×4 (05:26→23:23)
[2022-10-14 05:28] LABS: Basophils # (auto) 0.1 10 ^3/uL (0-0.2); Basophils % (auto) 0.7 % (0.0-2.0); Hematocrit 29.6 % (41.0-53.0); Hemoglobin 8.9 g/dL (13.5-17.5); Lymphocytes # (auto) 1.8 10 ^3/uL (0.4-5.4); Mean Corpuscular Volume 60.3 fL (80.0-100.0); Nucleated Red Blood Cells % 0.1 %
[2022-10-14 05:30] LABS: Eosinophils # (auto) 0.2 10 ^3/uL (0-0.8); Eosinophils % (auto) 1.2 % (0.0-7.0); Lymphocytes % (auto) 12.6 % (10.0-50.0); Mean Corpuscular Hgb Conc. 29.9 g/dL (32.0-36.0); Monocytes # (auto) 1.5 10 ^3/uL (0-1.3); Monocytes % (auto) 10.5 % (0.0-12.0); Neutrophils # (auto) 10.8 10 ^3/uL (1.6-8.6); Red Blood Cells 4.91 10^6/uL (4.5-5.90); White Blood Cell 14.4 10^3/uL (4.4-10.8)
[2022-10-14 05:40] LABS: Red Cell Distribution Width 25.2 % (11.8-14.3)
[2022-10-14 05:53] LABS: Potassium 3.7 mmol/L (3.5-5.1)
[2022-10-14] MEDS: MIDODRINE HCL 10 MG TAB PO SCH ×3 (06:00→18:00)
[2022-10-14 06:03] LABS: BUN/Creatinine Ratio 28.6 (10.0-20.0); Calcium 8.7 mg/dL (8.5-10.1)
[2022-10-14] MEDS: LEVOTHYROXINE SODIUM 100 MCG TAB PO SCH (06:30)
[2022-10-14 07:59] LABS: Platelet Estimate Adequate
[2022-10-14 08:00] LABS: Anisocytosis Moderate; Hypochromia Moderate; Ovalocytes FEW; Stomatocytes Few
[2022-10-14 08:02] LABS: Tear Drop Cells FEW
[2022-10-14] MEDS: Ensure HIGH Protein Chocolate 8oz Bottle PO SCH ×3 (08:05→18:34)
[2022-10-14] MEDS: ASPirin 81 mg TAB PO SCH (10:00)
[2022-10-14] MEDS: FLUCONAZOLE 200MG/100ML 100 ML IV SCH (10:10)
[2022-10-14] MEDS: CIPROFLOXACIN 400MG/200ML 200 ML IV SCH (10:10)
[2022-10-14] MEDS: DAKINS QUARTER STR 0.125% (NaHypochlorite) 473 ML TOPICAL SOL TOP SCH (10:11)
[2022-10-14] MEDS: SODIUM CHLOR 0.9% PF (SALINE LOCK) 10ML VIAL/SYR IV SCH ×2 (10:11→22:13)
[2022-10-14 13:43] LABS: Basophils # (auto) 0.1 10 ^3/uL (0-0.2); Basophils % (auto) 0.6 % (0.0-2.0); Eosinophils # (auto) 0.1 10 ^3/uL (0-0.8); Eosinophils % (auto) 0.4 % (0.0-7.0); Hematocrit 30.3 % (41.0-53.0); Hemoglobin 9.1 g/dL (13.5-17.5); Lymphocytes % (auto) 7.6 % (10.0-50.0); Mean Corpuscular Hemoglobin 18.3 pg (28.0-32.0); Mean Corpuscular Volume 60.9 fL (80.0-100.0); Monocytes % (auto) 7.4 % (0.0-12.0); Neutrophils # (auto) 11.1 10 ^3/uL (1.6-8.6); Red Blood Cells 4.98 10^6/uL (4.5-5.90); Red Cell Distribution Width 25.2 % (11.8-14.3); White Blood Cell 13.3 10^3/uL (4.4-10.8)
[2022-10-14] MEDS: VANCOMYCIN 500 MG in D5W 5% 100 ML IV SCH (15:44)
[2022-10-14] MEDS: ATORVASTATIN 20 MG TAB PO SCH (21:56)
[2022-10-14] MEDS ORDERED: levoFLOXacin 500MG 100 ML IV SCH (22:00)
[2022-10-15] VITALS (9 sets, daily range): BP systolic 92–123; BP diastolic 27–63; PULSE 54–86; RESP 16–22; TEMP 97.6–98.8; O2SAT 92–100
[2022-10-15] MEDS: metroNIDAZOLE 500MG/100ML 100 ML IV SCH (05:31)
[2022-10-15] MEDS: MIDODRINE HCL 10 MG TAB PO SCH ×3 (05:32→18:12)
[2022-10-15] MEDS: BACLOFEN 10 MG TAB PO SCH ×3 (05:32→18:12)
[2022-10-15] MEDS: LEVOTHYROXINE SODIUM 100 MCG TAB PO SCH (06:08)
[2022-10-15 06:43] LABS: Basophils # (auto) 0 10 ^3/uL (0-0.2); Basophils % (auto) 0.4 % (0.0-2.0); Eosinophils # (auto) 0.2 10 ^3/uL (0-0.8); Eosinophils % (auto) 1.5 % (0.0-7.0); Hematocrit 23.3 % (41.0-53.0); Lymphocytes # (auto) 1.3 10 ^3/uL (0.4-5.4); Lymphocytes % (auto) 10.5 % (10.0-50.0); Mean Corpuscular Hemoglobin 18.4 pg (28.0-32.0); Mean Corpuscular Hgb Conc. 30.2 g/dL (32.0-36.0); Mean Corpuscular Volume 60.8 fL (80.0-100.0); Monocytes # (auto) 1.4 10 ^3/uL (0-1.3); Monocytes % (auto) 11.8 % (0.0-12.0); Neutrophils # (auto) 9.1 10 ^3/uL (1.6-8.6); Neutrophils % (auto) 75.8 % (37.0-80.0); Red Blood Cells 3.82 10^6/uL (4.5-5.90)
[2022-10-15 07:04] LABS: BUN/Creatinine Ratio 28.3 (10.0-20.0)
[2022-10-15] MEDS: FLUCONAZOLE 200MG/100ML 100 ML IV SCH (08:24)
[2022-10-15] MEDS: ASPirin 81 mg TAB PO SCH (08:24)
[2022-10-15] MEDS: Ensure HIGH Protein Chocolate 8oz Bottle PO SCH ×3 (08:25→18:12)
[2022-10-15] MEDS: SODIUM CHLOR 0.9% PF (SALINE LOCK) 10ML VIAL/SYR IV SCH ×2 (08:25→22:15)
[2022-10-15] MEDS: DAKINS QUARTER STR 0.125% (NaHypochlorite) 473 ML TOPICAL SOL TOP SCH (08:26)
[2022-10-15] MEDS: metroNIDAZOLE 500 MG TAB PO SCH ×2 (11:23→22:13)
[2022-10-15] MEDS: FLUCONAZOLE 100 MG TAB PO SCH (11:23)
[2022-10-15] MEDS: levoFLOXacin 500 MG TAB PO SCH (11:23)
[2022-10-15] MEDS: ACETAMINOPHEN 500 MG TAB PO PRN ×2 (12:58→20:41)
[2022-10-15] MEDS ORDERED: VANCOMYCIN 500 MG in D5W 5% 100 ML IV SCH (17:00)
[2022-10-15] MEDS: ATORVASTATIN 20 MG TAB PO SCH (22:13)
[2022-10-16] MEDS: BACLOFEN 10 MG TAB PO SCH ×3 (01:43→13:27)
[2022-10-16 05:00] VITALS: BP 136/71; PULSE 74; RESP 20; TEMP 97.5; O2SAT 94
[2022-10-16] MEDS: LEVOTHYROXINE SODIUM 100 MCG TAB PO SCH (06:28)
[2022-10-16] MEDS: metroNIDAZOLE 500 MG TAB PO SCH ×2 (06:28→13:27)
[2022-10-16] MEDS: MIDODRINE HCL 10 MG TAB PO SCH ×2 (06:28→13:27)
[2022-10-16 07:01] LABS: Basophils # (auto) 0 10 ^3/uL (0-0.2); Hemoglobin 8.8 g/dL (13.5-17.5); Mean Corpuscular Hemoglobin 20.1 pg (28.0-32.0); Monocytes # (auto) 1.1 10 ^3/uL (0-1.3)
[2022-10-16 07:03] LABS: Basophils % (auto) 0.3 % (0.0-2.0); Eosinophils # (auto) 0.4 10 ^3/uL (0-0.8); Eosinophils % (auto) 3.8 % (0.0-7.0); Hematocrit 28.4 % (41.0-53.0); Lymphocytes # (auto) 1.5 10 ^3/uL (0.4-5.4); Lymphocytes % (auto) 13.5 % (10.0-50.0); Mean Corpuscular Hgb Conc. 30.9 g/dL (32.0-36.0); Mean Corpuscular Volume 64.9 fL (80.0-100.0); Monocytes % (auto) 9.5 % (0.0-12.0); Neutrophils # (auto) 8.2 10 ^3/uL (1.6-8.6); Neutrophils % (auto) 72.9 % (37.0-80.0); Red Blood Cells 4.38 10^6/uL (4.5-5.90); White Blood Cell 11.2 10^3/uL (4.4-10.8)
[2022-10-16 07:12] LABS: Red Cell Distribution Width 28.9 % (11.8-14.3)
[2022-10-16 08:00] VITALS: PULSE 70
[2022-10-16] MEDS: Ensure HIGH Protein Chocolate 8oz Bottle PO SCH ×2 (08:00→12:00)
[2022-10-16 09:00] VITALS: BP 122/61; PULSE 80; RESP 20; TEMP 97.6; O2SAT 95
[2022-10-16] MEDS: levoFLOXacin 500 MG TAB PO SCH (09:41)
[2022-10-16] MEDS: DAKINS QUARTER STR 0.125% (NaHypochlorite) 473 ML TOPICAL SOL TOP SCH (09:41)
[2022-10-16] MEDS: ASPirin 81 mg TAB PO SCH (09:41)
[2022-10-16] MEDS: FLUCONAZOLE 100 MG TAB PO SCH (09:41)
[2022-10-16] MEDS ORDERED: AMOX875T4 PO (09:45)
[2022-10-16] MEDS ORDERED: FLUC200T50 PO (09:45)
[2022-10-16] MEDS: SODIUM CHLOR 0.9% PF (SALINE LOCK) 10ML VIAL/SYR IV SCH (10:26)
[2022-10-16 11:03] LABS: Platelet Estimate Adequate
[2022-10-16 11:04] LABS: Anisocytosis Moderate; Hypochromia Moderate
[2022-10-16 12:53] VITALS: BP 117/72; PULSE 81; RESP 20; TEMP 97.6; O2SAT 99
== END 2022-10-16 13:50 | disposition home or self-care (01) | DRG 871 ==
LOC: ER 13:26 → EDBD 13:26 → OVERFLOW 16:31 → ICU CENTRL 09-30 23:04 → ICU WEST 10-03 10:11 → TELE-WESTW 10-12 18:21
PROVIDERS: ADMIT Internal Medicine; ATTEND Internal Medicine
PROC: 02HV33Z Insertion of Infusion Device into Superior Vena Cava, Percutaneous Approach (ICD-10-PCS; 2022-09-28)
PROC: B548ZZA Ultrasonography of Superior Vena Cava, Guidance (ICD-10-PCS; 2022-09-28)
PROC: 30233N1 Transfusion of Nonautologous Red Blood Cells into Peripheral Vein, Percutaneous Approach (ICD-10-PCS; principal; 2022-09-30)
DX: A41.51 Sepsis due to Escherichia coli [E. coli] (principal); E43 Unspecified severe protein-calorie malnutrition; J96.01 Acute respiratory failure with hypoxia; G93.41 Metabolic encephalopathy; R65.21 Severe sepsis with septic shock; I21.A1 Myocardial infarction type 2; I50.31 Acute diastolic (congestive) heart failure; G82.20 Paraplegia, unspecified; I47.20 Ventricular tachycardia, unspecified; J98.11 Atelectasis; E78.00 Pure hypercholesterolemia, unspecified; Z66 Do not resuscitate; E03.9 Hypothyroidism, unspecified; E11.65 Type 2 diabetes mellitus with hyperglycemia; E87.6 Hypokalemia; D50.0 Iron deficiency anemia secondary to blood loss (chronic); I48.91 Unspecified atrial fibrillation; I11.0 Hypertensive heart disease with heart failure; L89.159 Pressure ulcer of sacral region, unspecified stage; N30.90 Cystitis, unspecified without hematuria; M19.90 Unspecified osteoarthritis, unspecified site; Z68.27 Body mass index [BMI] 27.0-27.9, adult; Z79.899 Other long term (current) drug therapy; A41.2 Sepsis due to unspecified staphylococcus; R79.89 Other specified abnormal findings of blood chemistry; B96.4 Proteus (mirabilis) (morganii) as the cause of diseases classified elsewhere; Z87.828 Personal history of other (healed) physical injury and trauma; B96.1 Klebsiella pneumoniae [K. pneumoniae] as the cause of diseases classified elsewhere
CPT/HCPCS: 36415; 36569; 36600; 70450; 71045; 74176; 80048; 80053; 80061; 80202; 80307; 80320; 81001; 82553; 82805; 82962; 83036; 83605; 83735; 83880; 84100; 84132; 84443; 84484; 85025; 85379; 85384; 85610; 85730; 86592; 86850; 86900; 86901; 86920; 87040; 87077; 87081; 87086; 87088; 87186; 87205; 87426; 92610; 93005; 93306; 93970; 96365; 96366; 96367; 96368; 96375; G0378; J1450; J1815; J1956; J2185; J2405; J2543; J3480; J3490; J7060; P9047